=== PATIENT | male | born 1995 | race Caucasian/White ===

== ENCOUNTER 2016-12-23 08:36 | Emergency (ER) | payer OTHER ==
[~2016-12-23 08:36] MED LIST: BACTRIM DS TABL1 TA1 PO; BENADRYL25 M3 PO; KEFLEX500 M2 PO; PEN-VEE K PO; PREDNISONE PO; VOLTAREN75 MG PO
== END 2016-12-23 09:28 | disposition home or self-care (01) ==
LOC: CED 08:36
DX: K08.89 Other specified disorders of teeth and supporting structures (principal); Z88.8 Allergy status to other drugs, medicaments and biological substances; F17.200 Nicotine dependence, unspecified, uncomplicated
CPT/HCPCS: 99282